=== PATIENT | male | born 1955 | race Caucasian/White ===

== ENCOUNTER 2022-01-03 06:26 | Day surgery (SDC) | payer MEDICARE ==
[~2022-01-03] VITALS: Ht 182.9 cm; Wt 88.5 kg
[2022-01-03] MEDS ORDERED: BENZOCAINE 20% 0.5mL UD SPRAY MM ONE (08:12)
[2022-01-03] MEDS ORDERED: fentaNYL CITRATE/PF 100 MCG/2 ML AMP ONE (08:12)
[2022-01-03] MEDS ORDERED: MIDAZOLAM HCL 5 MG/5 ML VIAL ONE (08:12)
[2022-01-03 13:33] VITALS: BP_SYST 121
== END 2022-01-03 09:30 | disposition home or self-care (01) ==
LOC: SDS 06:26 → SMU 06:27 → SDS 09:30
PROVIDERS: ATTEND Internal Medicine
DX: Z12.11 Encounter for screening for malignant neoplasm of colon (principal); K64.8 Other hemorrhoids; K57.30 Diverticulosis of large intestine without perforation or abscess without bleeding; I12.9 Hypertensive chronic kidney disease with stage 1 through stage 4 chronic kidney disease, or unspecified chronic kidney disease; N18.9 Chronic kidney disease, unspecified; E78.00 Pure hypercholesterolemia, unspecified; K76.0 Fatty (change of) liver, not elsewhere classified; Z79.899 Other long term (current) drug therapy
CPT/HCPCS: 36415; 45378; 99152; U0003; G0378; J2250; J3010